=== PATIENT | male | born 2000 | race African-American/Black ===

== ENCOUNTER 2022-12-30 15:15 | Outpatient (REF) | payer BC, SELFPAY ==
--- NOTE | ~2022-12-30 | MR_ITS ---
EXAMINATION: MR FEMUR WITHOUT CONTRAST, LEFT CLINICAL INFORMATION: Left thigh/quadriceps pain following an injury 2 weeks ago. COMPARISON: None available. TECHNIQUE: Multisequence MR imaging of the left femur was obtained without contrast on a high-field strength scanner. FINDINGS: BONE: No marrow edema. No fracture or dislocation. No evidence of acute osseous injury. No concerning lytic or blastic osseous lesion. MUSCLES/TENDONS: There appears to be a full-thickness tear through the proximal rectus femoris tendon with retraction of the tendon fibers distally to the proximal femoral metaphysis. The resultant tendon gap measures approximately 9.4 cm in craniocaudal dimension; however, the anterior/inferior iliac spine is not completely visualized on all sequences. There is prominent adjacent fluid and edema related to the tear without large hematoma formation. Significant fluid and edema extends distally throughout the entirety of the rectus femoris muscle belly to the insertion at the quadriceps tendon, consistent with an acute muscle strain. There is adjacent fluid and edema within the fascial planes. On large [id number] steel shot header operator images, there appears to be increased signal within the right rectus femoris muscle which could indicate a strain/partial tear. Correlation for right-sided pain is recommended. The remaining visualized muscles and tendons are intact. No additional tear or evidence of injury. SOFT TISSUES: No additional soft tissue mass, fluid collection, or edema. The visualized pelvic structures are grossly unremarkable. MR/MR femur LT wo con IMPRESSION: 1. Full-thickness tear through the proximal rectus femoris tendon with retraction of the tendon fibers distally to the level of the proximal femoral metaphysis. The resultant tendon gap measures approximately 9.4 cm in craniocaudal dimension; however, the anterior/inferior iliac spine is not completely visualized on all sequences. Prominent adjacent fluid and edema within the rectus femoris muscle belly without large hematoma formation. 2. Possible strain/partial tear of the right rectus femoris muscle on large nnqgf-xq-cfcl steel shot header operator images. Correlation for right-sided pain is recommended. 3. No acute osseous injury.
== END 2022-12-30 15:16 | disposition home or self-care (01) ==
LOC: HO.MRI 15:15
PROVIDERS: Visit Provider Family Medicine
DX: M79.605 Pain in left leg (principal)
CPT/HCPCS: 73718

== ENCOUNTER 2023-05-17 18:04 | Outpatient (REF) | payer BC, SELFPAY ==
--- NOTE | ~2023-05-17 | MR_ITS ---
EXAMINATION: MR FEMUR WITHOUT CONTRAST, LEFT CLINICAL INFORMATION: Running injury. Muscle tear. Pain. COMPARISON: Left femur MRI dated 12/30/2022. TECHNIQUE: Multisequence MR imaging of the left femur was obtained without contrast on a high-field strength scanner. FINDINGS: BONE: No marrow edema. No stress reaction, fracture, or avascular necrosis. No concerning lytic or blastic osseous lesion. MUSCLES/TENDONS: Near-complete resolution of the previously seen proximal rectus femoris tendon tear. There is thin fluid along the periphery of the myotendinous junction measuring up to 5.7 cm in craniocaudal dimension. Findings likely represent thin residual seroma. Along the medial aspect of the proximal vastus lateralis muscle just adjacent to the rectus femoris tendon, there is focal increased T2/fluid signal (axial image 46/56), consistent with acute strain/partial tear. The remaining visualized muscles and tendons are intact. SOFT TISSUES: No soft tissue mass. No additional fluid collection. The visualized intrapelvic structures are unremarkable. MR/MR femur LT wo con IMPRESSION: 1. Near-complete resolution of the previously seen proximal rectus femoris tendon tear. Thin fluid along the periphery of the myotendinous junction measuring up to 5.7 cm, likely representing a thin residual seroma. 2. Acute strain/partial tear along the medial aspect of the proximal vastus lateralis muscle just adjacent to the rectus femoris tendon.
== END 2023-05-17 18:05 | disposition home or self-care (01) ==
LOC: HO.MRI 18:04
PROVIDERS: Visit Provider Family Medicine
DX: M79.652 Pain in left thigh (principal)
CPT/HCPCS: 73718

== ENCOUNTER 2024-12-21 19:36 | Outpatient (REF) | payer BC, SELFPAY ==
--- OUTSIDE RECORDS SUMMARY | 2018-09-18 04:05 | XMS_ITS | Continuity of Care Document ---
Author Organization [facility] Address [address] [place] [address] Phone Care Team Providers Care It Security Consultant Name Role Phone Deanna Ordaz Unavailable Unavailable Allergies, Adverse Reactions, Alerts Substance Reaction Status Criticality No Known allergies Procedures Procedure Date [employer] [facility] Offic/outpt E&m Estab Low-mod 8 [employer] [facility] [employer] Advance Directives Directive Yes / No Effective Date File Name No Information Encounters Encounter Description Practice Location Reason(s) For Visit Diagnoses Date Provider Providers Copied on Encounter [facility], [address], [place], [place], [id number], [place] tel:[phone] [facility] physical (chief complaint) Encounter for examination and observation for oth reasons 9 Juan Manuel Huerta. [address] [place], [address], [place]. tel:[phone] Offic/outpt E&m [facility] Low-mod [facility], [address], [place], [place], [id number], [place] tel:[phone] [facility] head injury (chief complaint) Minor head injury, initial encounter 8 No Information [facility], [address], [place], [place], [id number], tel:[phone] [facility] physical (chief complaint) Encounter for examination and observation for oth reasons No Information [facility] Physical Sports [facility], [address], [place], [place], [id number], [place] tel:[phone] [facility] physical (chief complaint) No Information No Information [facility] Physical Sports [facility], [address], [place], [place], [id number], [place] tel:[phone] [facility] EXAMINATION FOR MEDICOLEGAL REASONS Kalpesh Vásquez. [address] [facility], [place], [address], [place]. tel:[phone] Family History Family Member Type Diagnosis Age At Onset No Information Payers Payer name Insurance type Covered democrat ID Authoriza tijasvir(s) No Information Social History Type Description Quantity Date Captured Comments Alcohol Use Details No Caffeine Use Details Unknown Tobacco Use Status No Information Smoking Status No Information Non-Smoking Tobacco Use Details : No Details Available : No Details Available Sex Male Vital Signs Date / Time: Height Weight BMI Pulse Rate Blood Pressure Temperature Respiratory Rate Body Surface Area Head Circumference Head Circ. Percentile Wt./Bridger. Percentile BMI percentile Pulse Ox Inhaled Ox 11:29 AM 70.00 in 170.00 lbs 24.3 9 kg/m eter (2) 66 /min 110/78 mm[Hg] 98.60 F 18 /min 99 % Chief Complaint And Reason For Visit From encounter dated '09/18/2018 08:05'. physical (chief complaint) Reason For Referral Reason For Referral No Information History Of Present Illness Encounter Date Complaint History Of Prese nt Illness No Information Functional Status Date Functional Assessmen t No Information Instructions Date Instruction Additional Infor mation No Information Assessments Type Assessment Date No Information Patient Care Teams Name Effective Dates (start - stop) Status Members No Information
--- NOTE | ~2024-12-21 | MR_ITS ---
CLINICAL HISTORY: PAIN IN LT KNEE MR left knee without gadolinium Comparison: None provided Findings: No fractures. No pathologic bone lesions. Small simple joint effusion. Anterior and posterior cruciate ligaments are intact. There is markedly abnormal appearance of the femoral origin of the medial collateral ligament. The lateral collateral ligament is intact. Patellar retinacula and iliotibial band are intact. No tears of the quadriceps, patellar, popliteus, or flexor tendons. There are no meniscal tears. IMPRESSION: 1. MCL tear at femoral origin This document has been electronically signed by: Rajeev Vásquez MD on 12/22/2024 09:49:17
--- OUTSIDE RECORDS SUMMARY | 2024-12-21 19:39 | XMS_ITS | Encounter Summary ---
Author Organization [facility] Address [address] [place] [address] [place] [phone] Phone Care Team Providers Care Tow Boat Captain Name Role Phone Parth Cole DO Primary Care Provider [phone] Reason for Referral * MRI/CAT Scan - Closed Specialty Diagnoses / Procedures Referred By Contnish t Referred To Contact Radiology Diagnoses Synovial cyst of popliteal space (Luna), right knee Procedures MRI Knee (Right) Parth Cole DO [address] [place] [address] Phone: tel: fax: [email or web address] Referral ID Status Reason Start Date Expiration Date Visits Re quested Visits Authorized [id number] Closed 02/10/2024 02/09/2025 1 1 Encounter Details Date Type Department Care Team (Late st Contact Info) Description 02/10/2024 Transcribe Orders Virtual Department [address] [place] [address] Parth Cole DO [address] [place] [address] [email or web address] Synovial cyst of popliteal space (Luna), right knee (Primary Dx) Social History Tobacco Use Types Packs/Day Years Used Date Smoking Tobacco: Never Assessed Education Answer Date Recorded Are you interested in more education? Not on bethel e 02/10/2024 Are you concerned about learning? Not on file 02/10/2024 No 02/10/2024 No 02/10/2024 Digital Access Answer Date Recorded No 02/10/2024 No 02/10/2024 Reliable internet access at home? Not on file 02/10/2024 Device with a working camera? Not on file Sex and Gender Information Value Date Recorded Sex Assigned at Not on file Legal Sex Male 1:02 PM EST Gender Identity Not on file Sexual Orientation Not on file documented as of this encounter Plan of Treatment Not on file documented as of this encounter Results * MRI KNEE WITHOUT CONTRAST (RIGHT) (02/14/2024 9:13 AM EST) Anatomical Region Laterality Modality Knee Right Magnetic Resonan ce 02/14/2024 5:03 PM EST Impressions 02/15/2024 4:19 PM EST 1. No flap-like menisci tear identified. Possible radial tearing of medial meniscal body free edge. 2. Congestive changes about MCL meeting criteria for grade 1/2 tear/sprain. No complete fiber disruption. 3. Mild fiber indistinctness and elongation of ACL possibly reflecting effects of prior ACL injury with ligament laxity. No complete disruption. 4. Focal cartilage loss posterior aspect of lateral compartment overlying posterior lateral tibial plateau with adjacent subchondral reactive change. Narrative 02/15/2024 4:19 PM EST MRI KNEE WITHOUT CONTRAST (RIGHT) Referring clinician's provided indication for this examination in Epic: Outside Radiology Order; luna cyst Additional clinical information: Persistent right knee pain. Recent drainage of Luna's cyst. TECHNIQUE: Multi-sequence, multi-planar MRI of the knee without intravenous contrast. COMPARISON: No comparison knee imaging available. FINDINGS: Medial Compartment: Intrameniscal signal changes evident within the mid body and posterior horn of the medial meniscus not definitively communicating with the articular surface of the meniscus. Focal truncation of the free edge of the body raises question of radial tearing. There is indistinctness of the meniscal root on coronal images, but meniscal root appears to be intact as revealed on sagittal images. No cartilage defect or subchondral edema. Lateral Compartment: No meniscal tear. There is loss of cartilage overlying posterior aspect of lateral tibial plateau medially measuring 2 mm transverse diameter with adjacent subchondral edema. No other cartilage defect evident. Patellofemoral Compartment: No cartilage defect or subchondral edema. Tendons: Normal. Quadriceps, patellar, and popliteus tendons are intact. Ligaments: There is elongation of the ACL without disruption of fibers. Mild anterior translation of the tibia relative to the distal femur. Possible old partial- thickness ACL injury with subsequent development of ligament laxity. No full-thickness tear. Intact low signal PCL. Components of lateral collateral ligament complex are intact with normal low signal. There is mild fiber thickening and adjacent soft tissue congestion about MCL meeting criteria for grade 1-2 sprain. No complete fiber disruption. In absence of recent injury, findings may reflect gait disturbance with secondary MCL irritation. Bones: No fracture, osteonecrosis, or focal lesion. Marrow edema evident underneath area of cartilage loss affecting posterior aspect of the lateral tibial plateau. Joint: Small joint effusion. Congestive changes/edema evident within the deeper aspect of the popliteal fossa mid to upper portion in keeping with recently drained popliteal fossa cyst. Residual or recurrent popliteal fossa cyst evident, larger, more superficial component measuring 1.7 x 2.6 cm. Procedure Note Troy Connell MD - 02/15/2024 MRI KNEE WITHOUT CONTRAST (RIGHT) Referring clinician's provided indication for this examination in Epic:Outside Radiology Order; luna cyst Additional clinical information: Persistent right knee pain. Recentdrainage of Luna's cyst. TECHNIQUE: Multi-sequence, multi-planar MRI of the knee withoutintravenous contrast. COMPARISON: No comparison knee imaging available. FINDINGS: Medial Compartment: Intrameniscal signal changes evident within the midbody and posterior horn of the medial meniscus not definitivelycommunicating with the articular surface of the meniscus. Focal truncationof the free edge of the body raises question of radial tearing. There isindistinctness of the meniscal root on coronal images, but meniscal rootappears to be intact as revealed on sagittal images. No cartilage defector subchondral edema. Lateral Compartment: No meniscal tear. There is loss of cartilageoverlying posterior aspect of lateral tibial plateau medially measuring 2mm transverse diameter with adjacent subchondral edema. No other cartilagedefect evident. Patellofemoral Compartment: No cartilage defect or subchondral edema. Tendons: Normal. Quadriceps, patellar, and popliteus tendons are intact. Ligaments: There is elongation of the ACL without disruption of fibers.Mild anterior translation of the tibia relative to the distal femur.Possible old partial- thickness ACL injury with subsequent development ofligament laxity. No full-thickness tear. Intact low signal PCL. Componentsof lateral collateral ligament complex are intact with normal low signal.There is mild fiber thickening and adjacent soft tissue congestion aboutMCL meeting criteria for grade 1-2 sprain. No complete fiber disruption.In absence of recent injury, findings may reflect gait disturbance withsecondary MCL irritation. Bones: No fracture, osteonecrosis, or focal lesion. Marrow edema evidentunderneath area of cartilage loss affecting posterior aspect of thelateral tibial plateau. Joint: Small joint effusion. Congestive changes/edema evident within thedeeper aspect of the popliteal fossa mid to upper portion in keeping withrecently drained popliteal fossa cyst. Residual or recurrent poplitealfossa cyst evident, larger, more superficial component measuring 1.7 x 2.6cm. IMPRESSION: 1. No flap-like menisci tear identified. Possible radial tearing ofmedial meniscal body free edge. 2. Congestive changes about MCL meeting criteria for grade 1/2tear/sprain. No complete fiber disruption. 3. Mild fiber indistinctness and elongation of ACL possibly reflectingeffects of prior ACL injury with ligament laxity. No completedisruption. 4. Focal cartilage loss posterior aspect of lateral compartment overlyingposterior lateral tibial plateau with adjacent subchondral reactivechange. Parth Cole DO IM MR EXTREMITY Final Result documented in this encounter Visit Diagnoses Diagnosis Synovial cyst of popliteal space (Luna), right knee- Primary Synovial cyst of popliteal space (Luna), right knee documented in this encounter Care Teams Tow Boat Captain Relationship Specialty Start Date End Date Parth Cole DO [address] [place] [id number] [email or web address] PCP - General Family Medicine 02/10/24 documented as of this encounter Additional Source Comments The information contained in this document represents components of the legal health record. It is not the complete legal health record.[facility]
--- OUTSIDE RECORDS SUMMARY | 2024-12-21 19:39 | XMS_ITS | Encounter Summary ---
Author Organization [facility] Address [address] [facility] [address] [place] [address] Phone Care Team Providers Care Warehouse Order Picker Name Role Phone Parth Cole DO Primary Care Provider [phone] Encounter Details Date Type Department Care Team (Late st Contact Info) Description 02/10/2024 Procedure Pass [address] [place] [address] Social History Tobacco Use Types Packs/Day Years [...] on file documented as of this encounter Last Filed Vital Signs Vital Sign Reading Time Taken Comments Blood Pressure - - Pulse - - Temperature - - Respiratory Rate - - Oxygen Saturation - - Inhaled Oxygen Concentration - - Weight 83.5 kg (184 lb) 02/11/2024 10:30 AM EST Height 180.3 cm (5' 11 ) 02/11/2024 10:30 AM EST Body Mass Index 25.66 02/11/2024 10:30 AM EST documented in this encounter Plan of Treatment Not on file documented as of this encounter Visit Diagnoses Not on filedocumented in this encounter Care Teams Warehouse Order Picker Relationship Specialty Start Date End Date Parth Cole DO [address] [place] [address] [place] [id number] [email or web address] PCP - General Family Medicine 02/10/24 documented as of this encounter Additional Source Comments The information contained in this document represents components of the legal health record. It is not the complete legal health record.[facility]
--- OUTSIDE RECORDS SUMMARY | 2024-12-21 19:39 | XMS_ITS | Clinical Summary ---
Author Organization [facility] Address [address] [place] [address] Phone Care Team Providers Care Message Broker Developer Name Role Phone Parth Cole DO Primary Care Provider Social History Tobacco Use Types Packs/Day Years [...] on file Sexual Orientation Not on file Last Filed Vital Signs Vital Sign Reading Time Taken Comments Blood Pressure - - Pulse - - Temperature - - Respiratory Rate - - Oxygen Saturation - - Inhaled Oxygen Concentration - - Weight 83.5 kg (184 lb) 02/11/2024 10:30 AM EST Height 180.3 cm (5' 11 ) 02/11/2024 10:30 AM EST Body Mass Index 25.66 02/11/2024 10:30 AM EST Plan of Treatment Not on file Medical Devices Not on file Insurance GENERIC COMMERCIAL GENERIC COMMERCIAL GENERIC COMMERCIAL GENERIC COMMERCIAL [place] [id number] GENERIC COMMERCIAL [place]OVE [id number] GENERIC COMMERCIAL [place] [id number] Care Teams Message Broker Developer Relationship Specialty Start Date End Date Parth Cole DO [address] [place] [id number] PCP - General Family Medicine 02/10/24 Additional Source Comments The information contained in this document represents components of the legal health record. It is not the complete legal health record.[facility]
== END 2024-12-21 19:37 | disposition home or self-care (01) ==
LOC: HO.MRI 19:36
PROVIDERS: Visit Provider Family Medicine
DX: M25.562 Pain in left knee (principal)
CPT/HCPCS: 73721

== ENCOUNTER → 2024-12-21 19:42 | Outpatient (BNV) | payer BC, SELFPAY | PROVIDERS: Visit Provider Specialist | DX: S83.412A Sprain of medial collateral ligament of left knee, initial encounter (principal) | CPT/HCPCS: 73721 ==